=== PATIENT | female | born 1990 | race African-American/Black ===

== ENCOUNTER 2025-10-02 08:00 | Emergency (ER) | payer OTHER ==
[~2025-10-02] VITALS: Ht 162.6 cm; Wt 82.0 kg
[2025-10-02 08:03] VITALS: TEMP 97.7; O2SAT 99
[2025-10-02] MEDS: LACTATED RINGERS 1,000 ML IV SCH (08:40)
[2025-10-02] MEDS: LEVETIRACETAM 500MG PREMIX 100 ML IV ONE ×2 (08:40→08:55)
[2025-10-02 08:47] LABS: BASOPHILS % 0.5 % (0.0-2.0); EOSINOPHILS % 2.5 % (0.0-5.0); HEMATOCRIT. 39.5 % (36.0-48.0); HEMOGLOBIN. 12.3 g/dL (12.0-16.0); LYMPHOCYTES % 22.5 % (20.0-50.0); MEAN PLATELET VOLUME 9.4 fl (7.4-10.4); MONOCYTES % 6.2 % (2.0-8.0); NEUTROPHILS % 68.3 % (40.0-76.0); PLATELET 248 x1000/uL (130-400); RED BLOOD CELL COUNT 4.59 mill/uL (4.2-5.4); RED CELL DISTRIBUTION WIDTH 17.3 % (11.6-14.6)
[2025-10-02 09:10] LABS: CREATININE 0.6 mg/dL (0.6-1.0); UREA NITROGEN BLOOD < 5 mg/dL (9-23)
[2025-10-02 09:11] LABS: HCG SCREEN NEGATIVE
[2025-10-02 09:12] LABS: ASPARTATE AMINOTRANSFERASE 13 IU/L (<34); BILIRUBIN TOTAL 0.3 mg/dL (0.1-1.0); PROTEIN TOTAL 5.8 g/dL (6.0-8.3)
[2025-10-02 10:46] VITALS: BP 128/95; PULSE 67; RESP 20; O2SAT 99
== END 2025-10-02 11:33 | disposition short-term general hospital (02) ==
LOC: ER 08:00
DX: R56.9 Unspecified convulsions (principal); M54.6 Pain in thoracic spine
CPT/HCPCS: 99285; 96365; 70450; 96366; 80053; 84703; 85025; 36415; 93005; J1953

== ENCOUNTER 2025-10-26 04:50 | Inpatient (IN) | payer OTHER ==
[~2025-10-26] VITALS: Ht 172.7 cm; Wt 82.6 kg
[2025-10-26 04:55] VITALS: O2SAT 94
[2025-10-26] MEDS: LEVETIRACETAM 1000MG PREMIX 100 ML IV ONE (06:01)
[2025-10-26 06:09] LABS: BASOPHILS % 0.4 % (0.0-2.0); EOSINOPHILS % 2.0 % (0.0-5.0); HEMATOCRIT. 37.6 % (36.0-48.0); HEMOGLOBIN. 12.0 g/dL (12.0-16.0); LYMPHOCYTES % 13.5 % (20.0-50.0); MEAN PLATELET VOLUME 9.0 fl (7.4-10.4); MONOCYTES % 5.2 % (2.0-8.0); NEUTROPHILS % 78.9 % (40.0-76.0); PLATELET 245 x1000/uL (130-400); RED BLOOD CELL COUNT 4.46 mill/uL (4.2-5.4); RED CELL DISTRIBUTION WIDTH 16.9 % (11.6-14.6)
[2025-10-26 06:23] LABS: CREATININE 0.8 mg/dL (0.6-1.0); ETHANOL BLOOD < 10 mg/dL (<10); UREA NITROGEN BLOOD 6 mg/dL (9-23)
[2025-10-26 06:26] LABS: CARBAMAZEPINE < 0.4 ug/mL (4-12); HCG SCREEN NEGATIVE; PHENOBARBITAL < 3.0 ug/mL (15.0-40.0); PHENYTOIN < 2.0 ug/mL (10-20); VALPROIC ACID < 3.0 ug/mL (50-100)
[2025-10-26 09:19] LABS: CLARITY URINE CLEAR (CLEAR); COLOR URINE YELLOW (YELLOW); GLUCOSE URINE NEGATIVE (NEGATIVE); KETONES URINE NEGATIVE (NEGATIVE); LEUKOCYTE ESTERASE URINE NEGATIVE (NEGATIVE); NITRITE URINE NEGATIVE (NEGATIVE); OCCULT BLOOD URINE NEGATIVE (NEGATIVE); PH URINE 6.5 (4.5-8.0); PROTEIN URINE TRACE (NEGATIVE); SPECIFIC GRAVITY URINE 1.013 (1.005-1.030); UROBILINOGEN URINE 0.2 E.U./dL (0.2-1.0)
[2025-10-26 09:45] VITALS: BP 141/90; PULSE 61; RESP 18; TEMP 36.5; O2SAT 97
[2025-10-26 09:54] LABS: *AMPHETAMINES SCREEN URINE NEGATIVE (NEGATIVE); *BARBITURATES SCREEN URINE NEGATIVE (NEGATIVE); *BENZODIAZEPINES SCREEN URINE PRESUMPTIVE POSITIVE (NEGATIVE); *COCAINE SCREEN URINE NEGATIVE (NEGATIVE); PHENCYCLIDINE URINE SCREEN NEGATIVE (NEGATIVE)
[2025-10-26 09:55] LABS: CANNABINOID URINE SCREEN PRESUMPTIVE POSITIVE (NEGATIVE); ECSTASY MDMA SCREEN URINE NEGATIVE (NEGATIVE); METHADONE URINE SCREEN NEGATIVE (NEGATIVE); OPIATES URINE SCREEN NEGATIVE (NEGATIVE)
[2025-10-26 10:12] LABS: BACTERIA URINE TRACE; RBC URINE NONE SEEN /hpf (0-2); SQUAMOUS EPITHELIAL CELL URINE 1+ /lpf (RARE/1+); WBC URINE 0-2 /hpf (0-2)
[2025-10-26 10:13] LABS: MUCUS URINE TRACE /lpf (< = 2+)
[2025-10-26 10:21] VITALS: BP 141/90; PULSE 61; RESP 18; TEMP 36.5292
[2025-10-26] MEDS: ACETAMINOPHEN 325MG TABLET PO PRN (11:42)
[2025-10-26 12:00] VITALS: BP 116/62; PULSE 60; RESP 19; TEMP 36.5; O2SAT 100
[2025-10-26] MEDS ORDERED: MAGNESIUM/ALUMINUM HYDROXIDE/SIMETHICONE 30ML UDC PO PRN (13:15)
[2025-10-26] MEDS ORDERED: ONDANSETRON HCL 4MG/2ML INJ IV PRN (13:15)
[2025-10-26] MEDS ORDERED: DIPHENHYDRAMINE 50MG/ML VIAL IV PRN (13:15)
[2025-10-26] MEDS ORDERED: LORAZEPAM 2MG/ML UD SYRINGE IV PRN (13:15)
[2025-10-26] MEDS ORDERED: SODIUM CHLORIDE 0.9% 3ML FLUSH IVF SCH (14:00)
[2025-10-26] MEDS ORDERED: LEVETIRACETAM 500MG PREMIX 100 ML IV SCH (21:00)
== END 2025-10-26 17:34 | disposition left against medical advice (07) | DRG 101 ==
LOC: ER 04:50 → 8WST 08:35 → EDBEDREQ 08:40 → EDBEDREQTM 08:40 → ENRESERV 09:00
PROVIDERS: ADMIT Internal Medicine; ATTEND Internal Medicine
DX: G40.909 Epilepsy, unspecified, not intractable, without status epilepticus (principal); Z53.29 Procedure and treatment not carried out because of patient's decision for other reasons
CPT/HCPCS: 36415; 80048; 80156; 80165; 80184; 80185; 80305; 80320; 81003; 84703; 85025; 93005; 99285; J1953; G0480

== ENCOUNTER 2025-10-27 08:50 | Emergency (ER) | payer OTHER ==
[~2025-10-27] VITALS: Ht 157.5 cm; Wt 75.0 kg
[2025-10-27 08:57] VITALS: O2SAT 99
[2025-10-27] MEDS: SODIUM CHLORIDE 0.9% 1,000 ML IV ONE (09:16)
[2025-10-27] MEDS: LEVETIRACETAM 1000MG PREMIX 100 ML IV ONE (09:16)
[2025-10-27 09:17] LABS: BASOPHILS % 0.6 % (0.0-2.0); EOSINOPHILS % 1.8 % (0.0-5.0); HEMATOCRIT. 42.4 % (36.0-48.0); HEMOGLOBIN. 12.7 g/dL (12.0-16.0); LYMPHOCYTES % 31.7 % (20.0-50.0); MEAN PLATELET VOLUME 9.6 fl (7.4-10.4); MONOCYTES % 7.3 % (2.0-8.0); NEUTROPHILS % 58.6 % (40.0-76.0); PLATELET 299 x1000/uL (130-400); RED BLOOD CELL COUNT 4.78 mill/uL (4.2-5.4); RED CELL DISTRIBUTION WIDTH 17.9 % (11.6-14.6)
[2025-10-27 09:24] VITALS: TEMP 36.9
[2025-10-27 09:31] LABS: HCG SCREEN NEGATIVE
[2025-10-27 10:30] LABS: INR 1.0
[2025-10-27 10:34] LABS: CREATININE 0.8 mg/dL (0.6-1.0); UREA NITROGEN BLOOD 6 mg/dL (9-23)
[2025-10-27 10:35] LABS: ETHANOL BLOOD < 10 mg/dL (<10); PROTEIN TOTAL 6.9 g/dL (6.0-8.3)
[2025-10-27 10:36] LABS: ASPARTATE AMINOTRANSFERASE 17 IU/L (<34); BILIRUBIN DIRECT < 0.1 mg/dL (<=3.0); BILIRUBIN TOTAL 0.3 mg/dL (0.1-1.0)
[2025-10-27 12:56] VITALS: BP 133/57; PULSE 68; RESP 14; O2SAT 99
== END 2025-10-27 13:10 | disposition short-term general hospital (02) ==
LOC: ER 08:50 → EDBEDREQ 12:34 → EDBEDREQTM 12:34 → CANBEDREQ 13:04 → ER 13:10
DX: G40.909 Epilepsy, unspecified, not intractable, without status epilepticus (principal); Z79.899 Other long term (current) drug therapy; Z98.890 Other specified postprocedural states
CPT/HCPCS: 80076; 80048; 80320; 84703; 85025; 85610; 36415; 93005; 96365; 99285; J1953; J7030; G0480